=== PATIENT | male | born 1990 | race Caucasian/White ===

== ENCOUNTER 2018-08-11 12:40 | Outpatient (RCR) | payer OTHER ==
[2018-08-11 14:25] LABS: SEMEN VOLUME 1.5 ML (1.5-5.0)
== END 2018-11-09 | disposition home or self-care (01) ==
LOC: LAB 12:40
PROVIDERS: ATTEND Family Medicine
DX: N46.9 Male infertility, unspecified (principal)
CPT/HCPCS: 89320